=== PATIENT | male | born 1935 | race Caucasian/White ===

== ENCOUNTER 2022-12-21 23:54 | Emergency (ER) | payer MEDICARE ==
[~2022-12-21] VITALS: Ht 167.6 cm; Wt 79.4 kg
[2022-12-22] MEDS ORDERED: FLAS1KIT2 TP (01:09)
[2022-12-22] MEDS ORDERED: FLAS1EAC2 MC (01:09)
[2022-12-22 01:30] VITALS: BP 134/71; TEMP 98.2; O2SAT 98
== END 2022-12-22 01:31 | disposition home or self-care (01) ==
LOC: ER 23:58
DX: S61.210A Laceration without foreign body of right index finger without damage to nail, initial encounter (principal); E11.9 Type 2 diabetes mellitus without complications; Z79.899 Other long term (current) drug therapy; W18.39XA Other fall on same level, initial encounter; Y93.89 Activity, other specified; Y92.89 Other specified places as the place of occurrence of the external cause; Y99.8 Other external cause status
CPT/HCPCS: A4663